=== PATIENT | female | born 2000 | race Caucasian/White ===

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

== ENCOUNTER 2019-11-07 17:31 | Emergency (ER) | payer OTHER ==
[~2019-11-07] VITALS: Ht 165.1 cm; Wt 64.0 kg
[2019-11-07 17:40] VITALS: Ht 165.1 cm; Wt 64.0 kg
[2019-11-07 19:58] VITALS: BP 120/62
== END 2019-11-07 19:58 | disposition home or self-care (01) ==
LOC: ED 17:31
DX: M54.42 Lumbago with sciatica, left side (principal)
CPT/HCPCS: J1885